=== PATIENT | female | born 1985 ===

== ENCOUNTER 2020-11-16 20:13 | Inpatient (IN) | payer BC ==
[~2020-11-16] VITALS: Ht 165.1 cm; Wt 100.9 kg
[~2020-11-16 20:13] MED LIST: FERROUS SU325 MG/TAB PO; MOTRIN 800800 MG/TAB PO; PERCOCET 325 MG1 TA2 PO
--- NOTE | 2020-11-16 20:25 | NUR ---
PT TO UNIT AMBULATORY WITH COMPLAINTS OF VAGINAL BLEEDING. PT ORIENTED TO ROOM, CHANGED INTO GOWN, PERIPAD IN PLACE, SCANT BLOOD NOTED TO [facility]IA BUT NO ACTIVE BLEEDING VISUALIZED AT THE VAGINA. EFM X2 APPLIED, VS OBTAINED, NO SVE PERFORMED AT THIS TIME.
[2020-11-16] MEDS ORDERED: PRENATAL PO (20:48)
[2020-11-16] MEDS ORDERED: ASPIRIN 81M81 MG/TA2 PO (20:48)
[2020-11-16 21:00] VITALS: BP 136/63; PULSE 70
[2020-11-16 21:49] VITALS: BP 126/57; PULSE 77; TEMP 98.5
--- NOTE | 2020-11-16 21:49 | NUR ---
PT MAY DC HOME PER DR ROLES. NOTIFY PT TO RETURN TO UNIT IF BLEEDING CONTINUES. MONITORING DC'D, PT CHANGING INTO STREET CLOTHES WHILE DISCHARGE PAPERS PREPARED.
--- NOTE | 2020-11-16 21:55 | NUR ---
UPON ENTERING ROOM PT IS IN THE BATHROOM AND STATES SHE IS BLEEDING MORE. BRIGHT RED BLOOD VISUALIZED ON TOILET PAPER. INSTRUCTED PT TO RETURN TO BED, WILL NOTIFY DR. HARTMAN
[2020-11-16 22:30] VITALS: BP 141/67; PULSE 72
[2020-11-16 23:00] VITALS: BP 139/69; PULSE 76
[2020-11-16 23:05] VITALS: BP 139/69; PULSE 76; TEMP 98.5
--- NOTE | 2020-11-16 23:12 | NUR ---
2243- DR WINKLER ON UNIT TO EVALUATE PT. 2243- SVE PERFORMED BY DR. WINKLER, 6CM WITH BULGING BAG OF WATER. C/S CALLED. 2247- DANIELLA MUHAMMAD NOTIFIED OF IMPENDING C/S. ON HIS WAY TO THE UNIT. 2254- PT SHAVED AND ABDOMINAL SCRUB COMPLETED. 2311- PT OFF MONITORS, TO OR FOR UNSCHEDULED C/S.
[2020-11-16 23:15] LABS: BASO # 0.1 (0.0-0.2); BASO % 0.8 % (0.0-2.0); EOS # 0.2 (0.0-0.7); GRAN # 5.6 (1.4-6.5); GRAN % 64.5 % (42.2-75.2); MEAN CELL VOLUME 105 fl (80.0-100.0); MEAN CORPUSCULAR HEMOGLOBIN 35 pg (27.0-31.0); MEAN CORPUSCULAR HGB CONC 33 g/dl (33.0-37.0); MEAN PLATELET VOLUME 12.4 fl (7.4-10.4); MONO # 0.8 (0.1-0.6); MONO % 8.9 % (1.7-9.3); PLATELET COUNT 158 K/mm3 (130-400); RED BLOOD COUNT 3.71 M/mm3 (4.10-5.30); REDCELL DISTRIBUTION WIDTH-CV 14.3 % (11.5-14.5)
[2020-11-17] VITALS (18 sets, daily range): BP systolic 99–138; BP diastolic 51–96; PULSE 64–96; TEMP 97.5–98.5
--- NOTE | 2020-11-17 02:30 | NUR ---
0230 UNABLE TO MOVE LEGS. TURNED FROM SIDE TO SIDE FOR PERICARE. LARGE RUBRA. FF U/1. ABD BINDER ON. IV CONTS TO INFUSE. BABY TO BREAST. REGULAR DIET TAKEN.
[2020-11-17] MEDS ORDERED: PERCOCET 325 MG1 TA2 PO (08:26)
[2020-11-17] MEDS ORDERED: MOTRIN 800800 MG/TAB PO (08:26)
[2020-11-18 07:00] VITALS: BP 111/95; PULSE 66; TEMP 98.1
[2020-11-18 07:58] LABS: HEMATOCRIT 32.3 % (37.0-47.0); HEMOGLOBIN 10.6 g/dl (12.5-16.0)
--- NOTE | 2020-11-18 09:09 | NUR ---
Initial visit;Initial visit; Parents thanked for offering congratulations for the of their daughter. thanked family for choosing [facility].
[2020-11-18 16:02] VITALS: BP 116/78; PULSE 76; TEMP 98.1
[2020-11-18 19:30] VITALS: BP 128/75; PULSE 66; TEMP 97.5
[2020-11-19 08:13] VITALS: BP 122/68; PULSE 76; TEMP 98.1
== END 2020-11-19 16:25 | disposition home or self-care (01) | DRG 788 ==
LOC: LDRO 20:13 → LDR 23:07 → OB 23:45
PROVIDERS: ADMIT Obstetrics & Gynecology
PROC: 10D00Z1 Extraction of Products of Conception, Low, Open Approach (ICD-10-PCS; principal; 2020-11-16)
DX: O32.1XX0 Maternal care for breech presentation, not applicable or unspecified (principal); Z3A.38 38 weeks gestation of pregnancy; Z37.0 Single live birth; O34.219 Maternal care for unspecified type scar from previous cesarean delivery
CPT/HCPCS: J0690; J1100; J1885; J2370; J2405; J2590; J7120